=== PATIENT | male | born 1965 | race Two or more races ===

== ENCOUNTER → 2017-08-21 | Outpatient (CLI) | payer SELFPAY ==
--- NOTE | 2017-08-21 18:59 | HKNOTE ---
DATE OF SERVICE: 08/21/2017 CHIEF COMPLAINT: Right knee pain. HISTORY OF PRESENT ILLNESS: This is a 52-year-old male complaining of chronic right knee pain. The pain is on the inside of the knee. He denies any locking, catching or instability. He does not us e any assist devices. He does not wear any braces. He does not take any pain medications. He has not had any previous treatment. He denies any groin or back pain. GAIT: Nonantalgic gait, reciprocal gait pattern. PHYSICAL EXAMINATION: Right knee: Neutral alignment. Tender over the medial joint line, nontender over the lateral joint line, 0 to 120 degrees range of motion, stable to varus and valgus stress, n egative Jayden, negative anterior drawer, negative posterior drawer, negative Radha's. Motor strength 5/5 hamstrings, quadriceps, tibialis anterior, gastrocsoleus. X-RAYS, RIGHT KNEE: Three views of the right knee demonstrate medial joint space narrowing. There are no osteophytes. There are no fractures or dislocations. IMPRESSION: A 52-year-old male with right knee osteoarthritis. PLAN: I discussed treatment options with Mr. Ansari. After obtaining verbal consent, the right kn ee was prepped and draped in the usual sterile fashion. An injection of 1 mL of Kenalog along with 3 mL of 1% lidocaine was injected through the lateral portal. There were no complications. He tole rated the procedure well. He was advised to ice and elevate the right knee. He will follow up with in 3 months. Dictated By: NIKO ACOSTA/COBY Conf#: [id number] DID#: [id number]
--- NOTE | 2017-08-22 10:01 | RADRPT ---
PROCEDURE: Right knee x-ray CLINICAL INDICATION: Right knee pain TECHNIQUE: Multiple views of the knee were obtained with the patient weight bearing. COMPARISON: None FINDINGS: There is normal mineralization. No acute fracture or dislocation is seen. There is a small joint effusion. There is mild joint space narrowing in the medial femorotibial compartment. There is no significant soft tissue swelling. IMPRESSION: 1. Mild joint space narrowing in the medial femorotibial compartment. 2. Small joint effusion. RPTAT:AAJJ Ankit Holland Physician Date Time Electronically viewed and signed by Ankit Holland Physician on 08/22/2017 10:01 RHYS/
== END | disposition home or self-care (01) ==
LOC: HKI 15:07
PROVIDERS: ATTEND Orthopaedic Surgery Adult Reconstructive Orthopaedic Surgery
DX: M17.11 Unilateral primary osteoarthritis, right knee (principal)
CPT/HCPCS: 20610; 73564; G0463